=== PATIENT | female | born 1965 | race Two or more races ===

== ENCOUNTER 2021-09-28 14:03 | Emergency (ER) | payer OTHER ==
[~2021-09-28] VITALS: Ht 165.1 cm; Wt 6.8 kg
[2021-09-28] MEDS ORDERED: SYNTHROID125 MCG PO (14:19)
[2021-09-28] MEDS ORDERED: MAXALT10 MG PO (14:20)
== END 2021-09-28 17:47 | disposition home or self-care (01) ==
LOC: ER 14:03
DX: S82.891A Other fracture of right lower leg, initial encounter for closed fracture (principal); W19.XXXA Unspecified fall, initial encounter; Y92.838 Other recreation area as the place of occurrence of the external cause; E03.9 Hypothyroidism, unspecified

== ENCOUNTER 2024-07-07 08:08 | Outpatient (CLI) | payer OTHER ==
[~2024-07-07 08:08] MED LIST: MAXALT10 MG PO; SYNTHROID125 MCG PO
== END 2024-07-07 08:19 | disposition home or self-care (01) ==
LOC: RAD 08:08
PROVIDERS: ATTEND Physical Medicine & Rehabilitation
DX: M54.50 Low back pain, unspecified (principal); M25.551 Pain in right hip; M79.641 Pain in right hand
CPT/HCPCS: 72148

== ENCOUNTER 2025-08-30 09:19 | Outpatient (CLI) | payer OTHER | END 2025-08-30 09:50 | disposition home or self-care (01) | LOC: SONOGRAMA 09:19 | PROVIDERS: ATTEND Obstetrics & Gynecology | DX: R10.9 Unspecified abdominal pain (principal); R10.20 Pelvic and perineal pain unspecified side ==

== ENCOUNTER 2025-08-30 09:20 | Outpatient (CLI) | payer OTHER ==
[2025-08-30 10:42] LABS: BASO % 1.4 % (0.1-1.2); EOS # 0.17 (0.04-0.54); EOS % 2.6 % (0.7-7.0); LYMPH # 1.35 (1.18-3.74); LYMPH % 20.8 % (19.3-53.1); MEAN PLATELET VOLUME 9.80 fl (9.4-12.4); MONO # 0.57 (0.24-0.82); MONO % 8.8 % (4.7-12.5); NEUT # 4.31 (1.56-6.13); NEUT % 66.2 % (34.0-71.1); RED CELL DISTRIBUTION WIDTH 13.3 % (11.6-14.4)
[2025-08-30 10:43] LABS: ALT/SGPT 20.0 U/L (12-78); AST/SGOT 13.0 U/L (15-37); BILIRUBIN TOTAL 0.88 mg/dL (0.3-1.2); BUN CREA RATIO 22.0 (7.0-25.0); CHOL HDL RATIO 3.5 (0-5.0); CREATININE SERUM 0.73 mg/dL (0.55-1.02); GFR 81.88; GLOBULINA 3.0 G/DL (2.4-3.5); GLUCOSE FASTING 94.0 mg/dL (65-100); HDL 59.0 mg/dl (40-60); LDL 131.0 mg/dl (0-130); OSMOLALITY SERUM 282.0 MOSM/KG (275-295); TSH 1.4 uIU/mL (0.358-3.74); VLDL 16.0 (0-39)
[2025-08-30 10:48] LABS: T4 FREE 1.5 NG/ML (0.76-1.46)
[2025-08-30 11:07] LABS: URINE APPEARANCE Clear; URINE BACTERIA 328.7 uL (0.0-1933); URINE BILIRRUBIN Negative (NEGATIVE); URINE BLOOD Small; URINE COLOR Yellow; URINE EPITHELIAL CELLS 32.6 uL (0.0-38.8); URINE GLUCOSE Negative (NEGATIVE); URINE KETONE Trace (NEGATIVE); URINE LEUKOCYTE Small; URINE NITRATE Negative; URINE PROTEIN Trace (NEGATIVE); URINE RBC 14.8 uL (0.0-20.8); URINE UROBILINOGEN 1.0 E.U./dl; URINE WBC 37.5 uL (0.0-23.2)
[2025-08-30 11:24] LABS: URINE CAST 0.43 uL (0.0-1.40)
== END 2025-08-30 09:28 | disposition home or self-care (01) ==
LOC: LAB 09:20
PROVIDERS: ATTEND Obstetrics & Gynecology
DX: N91.1 Secondary amenorrhea (principal)